=== PATIENT | male | born 2000 | race Caucasian/White ===

== ENCOUNTER 2021-07-17 23:52 | Inpatient (IN) | payer MEDICAID, SELFPAY ==
--- NOTE | ~2021-07-17 | CT_ITS ---
EXAMINATION: CT ABDOMEN AND PELVIS WITH CONTRAST CLINICAL INFORMATION: Abdominal pain COMPARISON: None TECHNIQUE: Multidetector volumetric images were obtained from the superior aspect of the liver through the pubic symphysis following administration 85 mL of Omnipaque 350 intravenous contrast. Sagittal and coronal reformatted images were obtained on the technologist's workstation. Oral contrast: No This CT examination was performed using dose optimization techniques as appropriate, variously including the following: *Automated exposure control *Adjustment of mA and/or kV according to patient size (this includes techniques or standardized protocols for targeted exams where dose is matched to indication/reason for exam; i.e. extremities or head) *Use of iterative reconstruction technique DLP: 680 mGy-cm FINDINGS: LUNG BASES: The visualized lung bases are unremarkable. LIVER, GALLBLADDER, AND BILIARY TREE: The liver is normal in size, shape, and attenuation. No focal hepatic lesion or biliary ductal dilatation is present. The gallbladder is unremarkable with no evidence of radiopaque gallstones, gallbladder wall thickening, or obvious pericholecystic inflammatory changes. PANCREAS: Unremarkable. SPLEEN: Unremarkable. ADRENAL GLANDS: Unremarkable. KIDNEYS AND URETERS: The kidneys are normal in size, shape, and attenuation. No hydronephrosis, hydroureter, or calculi seen. No perinephric stranding. BLADDER: Unremarkable. GASTROINTESTINAL TRACT: The stomach is unremarkable. Normal caliber of the small bowel. No obstruction. Inflammatory changes are present in the right lower quadrant. Prominent wall thickening with adjacent fluid at the distal ileum. Abnormal appendix. The appendix is dilated measuring 1.2 cm. Appendiceal wall thickening noted measuring 0.4 cm. Prominent adjacent inflammation. Small amount of free fluid in the pelvis. No definite rim-enhancing collection at this time. No free air. ABDOMINAL WALL: No significant hernia is appreciated. LYMPH NODES: Normal. VASCULAR: Unremarkable. PELVIC VISCERA: The prostate and seminal vesicles are unremarkable. OSSEOUS STRUCTURES: No acute or suspicious osseous abnormality. CT/CT abdomen pelvis w con IMPRESSION: Acute appendicitis. Prominent inflammatory changes in the right lower quadrant. Wall thickening of the distal ileum, likely reactive. Free fluid extends into the pelvis without defined fluid collection at this time. No free air. Fleischner guidelines were followed.
[2021-07-18] VITALS (17 sets, daily range): BP systolic 111–139; BP diastolic 57–83; PULSE 57–108; RESP 15–20; TEMP 36.1–37.4; O2SAT 95–100; BMI 28.7; BMI 30.1
[2021-07-18] MEDS: Ondansetron ODT 4 MG TAB.RAPDIS TRANSLINGU (01:32)
[2021-07-18 01:38] LABS: Basophils Percent Auto 0.1 % (0-2); Hematocrit 48.3 % (42.0-52.0); Hemoglobin 15.8 g/dl (14.0-18.0); Imm Gran Pct Auto 0.4 % (0.0-0.4); Lymphocytes Percent Auto 3.5 % (20-40); MANUAL DIFF FLAG SCAN; Mean Corpuscular HGB Conc 32.7 g/dl (31.0-36.0); Mean Corpuscular Volume 79.4 fL (80.0-98.0); Mean Platelet Volume 10.3 fL (9.4-12.4); Monocytes Absolute Auto 0.7 X10*3/uL (0.1-1.2); Monocytes Percent Auto 2.8 % (2-11); Neutrophils Percent Auto 93.2 % (45-73); Platelet Count 284 X10*3/uL (160-400); Red Blood Count 6.08 X10*6/uL (4.60-5.80); Red Cell Distribution Width 13.5 % (11.0-16.0); SCAN SMEAR FLAG 1; White Blood Count 26.9 X10*3/uL (4.8-10.8)
[2021-07-18 02:00] LABS: SLIDE REVIEW VERIFIED
[2021-07-18 02:05] LABS: Alanine Aminotransferase 32 U/L (0-40); Alkaline Phosphatase 78 U/L (39-117); Anion Gap 17 (12-20); Aspartate Amino Transferase 18 U/L (5-37); Bilirubin Direct 0.3 mg/dL (0.0-0.5); Bilirubin Total 0.7 mg/dL (0.0-1.0); Blood Urea Nitrogen 16 mg/dL (9-16); Calcium 10.6 mg/dL (8.4-10.2); Carbon Dioxide 19 mmol/L (22-29); Chloride 104 mmol/L (96-108); Creatinine Clr Calc Pharmacy 131.2; Estimated Glomerular Filt Rate > 60; Glucose Random 129 mg/dL (60-115); Lipase 71 U/L (8-78); Potassium 4.4 mmol/L (3.3-5.1); Sodium 136 mmol/L (135-145); Total Protein 8.6 g/dL (6.5-8.0)
[2021-07-18 04:05] LABS: Appearance Urine HAZY; Color Urine DK YELLOW; Glucose Urine UA NEG (NEG); Leukocyte Esterase Urine TRACE (NEG); Nitrite Urine NEG (NEG); PH 6.5 (5.0-8.0); Specific Gravity - Urine 1.025 (1.005-1.025); UACC Culture Trigger YES; Urine Blood NEG (NEG); Urine Ketones NEG (NEG); Urine Protein TRACE MG/DL (NEG-TRACE)
[2021-07-18] MEDS: Ketorolac Tromethamine 30 MG/ML VIAL 15 MG IVPUSH (04:09)
[2021-07-18 04:23] LABS: Amorphous Sediment Urine TRACE /LPF; Bacteria Urine 1+ /LPF; Granular Casts Urine 0-2 /LPF; Lactic Acid 2.8 mmol/L (0.5-2.0); Mucus Urine 3+ /LPF; Squamous Epithelial Cell Urine 2+ /LPF
[2021-07-18] MEDS: iohexoL 350 MG/ML 100 ML INFUS..BTL 85 ML IV (04:23)
[2021-07-18 04:24] LABS: COVID-19 Test Negative (Negative)
[2021-07-18] MEDS: 0.9 % Sodium Chloride 1,000 ML 999 ML IV (04:25)
[2021-07-18] MEDS: Piperacillin Sodium/Tazobactam 3.375 GM in 0.9 % Sodium Chloride 50 ML IV ×3 (04:26→23:31)
--- NOTE | 2021-07-18 05:07 | ED_ITS ---
HPI - Abdominal Pain General Chief Complaint: Nausea/Vomiting/Diarrhea Stated Complaint: n/v, shakes + sweats Time Seen by Provider: 07/18/21 03:53 Source: patient and family (Mother) Mode of arrival: ambulatory History of Present Illness HPI narrative: 21-year-old male without significant past medical history presents with nausea, vomiting, diarrhea and periumbilical abdominal pain/right lower quadrant pain for 12 hours as been worsening. Patient reports chills as well. Related Data Allergies Allergy/AdvReac Type Severity Reaction Status Date / Time No Known Allergies Allergy Unverified 01/18/20 16:56 Review of Systems Review of Systems Pertinent positives and negatives as stated in HPI 10 point review of systems is otherwise negative. PMFSH Past Medical History Source: nursing notes reviewed Social History Social History Advance Directives: No Advance Directives Information Provided: Yes Physical Exam ED Vital Signs: Vital Signs - 24 hr 07/18/21 01:18 07/18/21 03:38 Temperature 98.7 F 98.4 F Pulse Rate 96 101 H Respiratory Rate 20 18 Blood Pressure 111/69 139/74 Pulse Oximetry 96 99 BMI result Body Mass Index 28.7 VITAL SIGNS: Reviewed. GENERAL: Well developed, well nourished, in no acute distress. HEAD: Normocephalic/atraumatic EYES: PERRLA, EOMI EARS: Ext canals without abnormality OROPHARYNX: no oral lesions noted, posterior pharynx clear LUNGS: Normal breath sounds. No adventitious sounds or accessory muscle use. SpO2<96> CARDIOVASCULAR: Regular rate and rhythm without noted murmurs ABDOMEN: Soft, tenderness on palpation at right lower quadrant/lower anant umbilical, non-distended with bowel sounds. SKIN: Inspection of the skin reveals no rashes NEUROLOGIC: Alert and oriented x 4. Strength and sensation to light touch were grossly intact x 4. Course Course Course Narrative: 21-year-old male with history and clinical presentation most consistent with appendicitis versus renal colic. On review of all investigations findings consistent with acute appendicitis, patient received IV fluids, pain medication, antibiotics and I discussed this c ase with the surgical team who accepts admission. MDM - Abdominal Pain Lab Data Result diagrams: 07/18/21 01:31 07/18/21 01:31 Labs: Lab Results 0307/18/21 07/18/21 Range/Units 01:31 01:31 03:59 WBC 26.9 H (4.8-10.8) X10*3/uL RBC 6.08 H (4.60-5.80) X10*6/uL Hgb 15.8 (14.0-18.0) g/dl Hct 48.3 (42.0-52.0) % MCV 79.4 L (80.0-98.0) fL MCH 26.0 L (27.0-33.0) pg MCHC 32.7 (31.0-36.0) g/dl RDW 13.5 (11.0-16.0) % Plt Count 284 (160-400) X10*3/uL MPV 10.3 (9.4-12.4) fL Immature Gran % (Auto) 0.4 (0.0-0.4) % Neut % (Auto) 93.2 H (45-73) % Lymph % (Auto) 3.5 L (20-40) % [place] % (Auto) 2.8 (2-11) % Eos % (Auto) 0.0 (0-4) % Baso % (Auto) 0.1 (0-2) % Lymph # (Auto) 1.0 L (1.2-4.9) X10*3/uL [place] # (Auto) 0.7 (0.1-1.2) X10*3/uL Eos # (Auto) 0.0 (0.0-0.4) X10*3/uL Baso # (Auto) 0.0 (0.0-0.2) X10*3/uL Abs Immat Gran (auto) 0.10 H (0.00-0.03) X10*3/uL Absolute Neuts (auto) 25.0 H (2.0-8.3) x10*3/uL Absolute Nucleated RBC 0.000 (0.0-0.012) X10*3/uL Nucleated RBC % (auto) 0.0 (0.0-0.2) /100WBC Smear Tech's Comments VERIFIED Sodium 136 (135-145) mmol/L Potassium 4.4 (3.3-5.1) mmol/L Chloride 104 (96-108) mmol/L Carbon Dioxide 19 L (22-29) mmol/L Anion Gap 17 (12-20) BUN 16 (9-16) mg/dL Creatinine 1.00 (0.5-1.4) mg/dL Estim Creat Clear Calc 131.2 Estimated GFR > 60 Random Glucose 129 H (60-115) mg/dL Lactic Acid 2.8 H* (0.5-2.0) mmol/L Calcium 10.6 H (8.4-10.2) mg/dL Total Bilirubin 0.7 (0.0-1.0) mg/dL Direct Bilirubin 0.3 (0.0-0.5) mg/dL AST 18 (5-37) U/L ALT 32 (0-40) U/L Alkaline Phosphatase 78 (39-117) U/L Total Protein 8.6 H (6.5-8.0) g/dL Albumin 5.0 (3.5-5.0) g/dL Lipase 71 (8-78) U/L Urine Color Urine Appearance Urine pH (5.0-8.0) Ur Specific [place] (1.005-1.025) Urine Protein (NEG-TRACE) MG/DL Urine Glucose (UA) (NEG) MG/DL Urine Ketones (NEG) MG/DL Urine Blood (NEG) Urine Nitrite (NEG) Ur Leukocyte Esterase (NEG) Urine RBC (0) /HPF Urine WBC (0-4) /HPF Ur Squamous Epith Cells /LPF Amorphous Sediment /LPF Urine Bacteria /LPF Granular Casts /LPF Urine Mucus /LPF COVID-19 ([facility]ISTA) (Negative) COVID-19 Clin Com 07/18/21 07/18/21 Range/Units 03:59 03:59 WBC (4.8-10.8) X10*3/uL RBC (4.60-5.80) X10*6/uL Hgb (14.0-18.0) g/dl Hct (42.0-52.0) % MCV (80.0-98.0) fL MCH (27.0-33.0) pg MCHC (31.0-36.0) g/dl RDW (11.0-16.0) % Plt Count (160-400) X10*3/uL MPV (9.4-12.4) fL Immature Gran % (Auto) (0.0-0.4) % Neut % (Auto) (45-73) % Lymph % (Auto) (20-40) % [place] % (Auto) (2-11) % Eos % (Auto) (0-4) % Baso % (Auto) (0-2) % Lymph # (Auto) (1.2-4.9) X10*3/uL [place] # (Auto) (0.1-1.2) X10*3/uL Eos # (Auto) (0.0-0.4) X10*3/uL Baso # (Auto) (0.0-0.2) X10*3/uL Abs Immat Gran (auto) (0.00-0.03) X10*3/uL Absolute Neuts (auto) (2.0-8.3) x10*3/uL Absolute Nucleated RBC (0.0-0.012) X10*3/uL Nucleated RBC % (auto) (0.0-0.2) /100WBC Smear Tech's Comments Sodium (135-145) mmol/L Potassium (3.3-5.1) mmol/L Chloride (96-108) mmol/L Carbon Dioxide (22-29) mmol/L Anion Gap (12-20) BUN (9-16) mg/dL Creatinine (0.5-1.4) mg/dL Estim Creat Clear Calc Estimated GFR Random Glucose (60-115) mg/dL Lactic Acid (0.5-2.0) mmol/L Calcium (8.4-10.2) mg/dL Total Bilirubin (0.0-1.0) mg/dL Direct Bilirubin (0.0-0.5) mg/dL AST (5-37) U/L ALT (0-40) U/L Alkaline Phosphatase (39-117) U/L Total Protein (6.5-8.0) g/dL Albumin (3.5-5.0) g/dL Lipase (8-78) U/L Urine Color DK YELLOW Urine Appearance HAZY Urine pH 6.5 (5.0-8.0) Ur Specific [place] 1.025 (1.005-1.025) Urine Protein TRACE (NEG-TRACE) MG/DL Urine Glucose (UA) NEG (NEG) MG/DL Urine Ketones NEG (NEG) MG/DL Urine Blood NEG (NEG) Urine Nitrite NEG (NEG) Ur Leukocyte Esterase TRACE H (NEG) Urine RBC 5-9 H (0) /HPF Urine WBC 1-4 (0-4) /HPF Ur Squamous Epith Cells 2+ /LPF Amorphous Sediment TRACE /LPF Urine Bacteria 1+ /LPF Granular Casts 0-2 /LPF Urine Mucus 3+ /LPF COVID-19 (SHAISTA) Negative (Negative) COVID-19 Clin Com See Note Discharge Plan Discharge Clinical Impression: Acute appendicitis Patient Disposition: Admitted As Inpatient
--- NOTE | 2021-07-18 05:18 | PC.NURSE ---
Dr. Lindsey to bedside to discuss CT results with pt. pt requesting to speak privately with MD to discuss CT results as well as some other health concerns. This RN leaving room with mother to allow pt to speak privately with MD. This RN offering reassurance to mother. MD finished with discussion, mother back in room with pt to allow him to share CT results and any other concerns he may want to share with her.
[2021-07-18] MEDS: 0.9 % Sodium Chloride 1,000 ML 100 ML IVCONT ×2 (05:35→15:16)
[2021-07-18] MEDS: ondansetron HCL 4 MG/2 ML VIAL IVPUSH ×2 (05:44→12:45)
[2021-07-18] MEDS: Acetaminophen 325 MG TABLET 975 MG PO (05:45)
[2021-07-18 06:03] LABS: Reflex Lactate? Lactic Acid Added
--- NOTE | 2021-07-18 07:37 | PHA.MEDREC ---
Pharmacy Consult ? Medication Reconciliation Pharmacy has completed the medication reconciliation. Patient report he tried pepto bismol but vomit shortly after. Carmen Campbell, PharmD
[2021-07-18] MEDS: 0.9 % Sodium Chloride Flush 3 ML SYRINGE IVFLUSH ×2 (08:01→15:16)
--- NOTE | 2021-07-18 08:20 | PM.HPGS ---
History of Present Illness History of Present Illness Date of Service: 07/18/21 Chief complaint: acute appendicitis Narrative: Alexander De Jesus is a 21 year old male who came to the ER last night because lower abdominal pain. He says this started about 14:00 yesterday afternoon. He said he was fine during the morning. He describes having lower abdominal pain along with nausea and vomiting. He says that he has had vomited multiple times overnight. He denies any fever but has had some chills. Review of Systems Constitutional: Constitutional: Reports chills and Denies fever(s) Cardiovascular: Cardiovascular: Denies chest pain, Denies dyspnea and Denies dyspnea on exertion Respiratory: Respiratory: Denies cough, Denies dyspnea and Denies dyspnea on exertion Gastrointestinal: Gastrointestinal: Denies hematochezia and Denies change in bowel habits Genitourinary: Genitourinary: Denies hematuria and Denies difficulty urinating Musculoskeletal: Musculoskeletal: Denies back pain and Denies limited range of motion Neurologic: Denies focal weakness and Denies convulsions Psychiatric: Psychiatric: Denies depression and Denies mood swings [facility] Past Medical History Medical History (Updated 07/18/21 @ 08:24 by Migel Cerda MD) Medical history non-contributory Social History Social History Alcohol intake: current Alcohol intake frequency: holidays/special occasions only Patient Tobacco Use Status: Current everyday Tobacco user Use of substances other than those prescribed or required for medical reasons: No Advance Directives: No Advance Directives Information Provided: Yes Meds Allergies Allergy/AdvReac Type Severity Reaction Status Date / Time No Known Allergies Allergy Unverified 01/18/20 16:56 Active Medications: Current Medications Acetaminophen (Acetaminophen 325 Mg Tablet) 650 mg PO Q4H PRN PRN Reason: fever Sodium Chloride (Ns) 1,000 mls @ 100 mls/hr IVCONT .Q10H [facility] Last Admin: 07/18/21 05:35 Dose: 100 mls/hr Documented by: Piperacillin Sod/Tazobactam (Sod 3.375 gm/ Sodium Chloride) 50 mls @ 100 mls/hr IV Q6H [facility] Morphine Sulfate (Morphine Sulfate 4 Mg/Ml Cartridge) 3 mg IVPUSH Q3H PRN; Protocol PRN Reason: Pain, Severe (Pain Scale 7-10) Ondansetron HCl (Ondansetron Hcl 4 Mg/2 Ml Vial) 4 mg IVPUSH Q8H PRN PRN Reason: Nausea and Vomiting Last Admin: 07/18/21 05:44 Dose: 4 mg Documented by: Sodium Chloride (0.9 % Sodium Chloride Flush 3 Ml Syringe) 3 ml IVFLUSH QSHIFT [facility] Last Admin: 07/18/21 08:01 Dose: 3 ml Documented by: Home Medications Medication Instructions Recorded Confirmed Last Taken Type No Known Home Meds 07/18/21 07/18/21 Unknown History Physical Exam Vital Signs: Vital Signs: Last Vital Signs Temp 99 F 07/18/21 07:48 Pulse 108 H 07/18/21 07:48 Resp 19 07/18/21 07:48 BP 118/69 07/18/21 07:48 Pulse Ox 98 07/18/21 07:48 BMI result Body Mass Index 28.7 Const: General: comfortable and no acute distress Orientation/consciousness: patient oriented x3 Neck: Neck: Yes no lymphadenopathy Resp: Auscultation: clear to auscultation bilaterally Cardio: Rhythm: regular rhythm GI: Palpation (GI): Soft to palpation, Tenderness to palpation present (GI) (Lower abdomen tenderness, no guarding or rebound) and no guarding Neuro: General: patient oriented x3 Results Results Labs: Short CBC 07/18/21 Range/Units 01:31 WBC 26.9 H (4.8-10.8) X10*3/uL Hgb 15.8 (14.0-18.0) g/dl Hct 48.3 (42.0-52.0) % Plt Count 284 (160-400) X10*3/uL BMP 07/18/21 01:31 Sodium 136 Potassium 4.4 Chloride 104 Carbon Dioxide 19 L BUN 16 Creatinine 1.00 Calcium 10.6 H Liver Function 07/18/21 Range/Units 01:31 Total Bilirubin 0.7 (0.0-1.0) mg/dL Direct Bilirubin 0.3 (0.0-0.5) mg/dL AST 18 (5-37) U/L ALT 32 (0-40) U/L Alkaline Phosphatase 78 (39-117) U/L Albumin 5.0 (3.5-5.0) g/dL Urine 07/18/21 Range/Units 03:59 Urine Color DK YELLOW Urine Appearance HAZY Urine pH 6.5 (5.0-8.0) Ur Specific [place] 1.025 (1.005-1.025) Urine Protein TRACE (NEG-TRACE) MG/DL Urine Glucose (UA) NEG (NEG) MG/DL Assessment and Plan (1) Acute appendicitis: Status: Acute He came to the ER because of lower abdominal pain. Review of his CT scan shows sickened periappendiceal inflammatory changes and some mild free fluid. Findings are consistent with acute appendicitis. I reviewed the CT scan with the radiologist. I had a long discussion with the patient and his mother. I explained the technique of laparoscopic appendectomy as well as the possibility of converting to open. I reviewed the risks including but not limited to bleeding, infections, injury to bowel, injury to urinary tract, staple line leak, inherent risks of anesthesia, as well as the benefits and alternatives. He is aware of the option of IV antibiotic treatment. He understands and wants to proceed with appendectomy. This will be scheduled for this morning. Quality Stroke Does the patient have a stroke diagnosis?: No VTE Prior VTE?: No VTE Risk Level:: Medical - low VTE Device Contraindication: N/A - Device Ordered VTE Drug Contraindication: Treatment Not Indicated Procedures Date of Service Date of Service: 07/18/21
--- NOTE | 2021-07-18 08:45 | PC.NURSE ---
rn to rn given to saqib pt aware of plan of care for surgery. pt/mother seen earlier by dr. beach and is aware of plan of care.
[2021-07-18] MEDS: Lactated Ringers 1,000 ML 100 ML IVCONT (09:37)
--- NOTE | 2021-07-18 11:09 | HO.ANESPROP2 ---
HPI - Anesthesia Eval Consult details Narrative: appendectomy PMFSH Active Problems Active Problems: All Active Problems (Updated 07/18/21 @ 08:24 by Migel Cerda MD) Medical history non-contributory (Acute) Acute appendicitis (Acute) Past Medical History Medical History (Updated 07/18/21 @ 08:24 by Migel Cerda MD) Medical history non-contributory Family History Family history of problems with anesthesia: No Surgical History History of Problems with Anesthesia: No Social History Social History Alcohol intake: current Alcohol intake frequency: holidays/special occasions only Patient Tobacco Use Status: Never used Tobacco Meds Allergies Allergy/AdvReac Type Severity Reaction Status Date / Time No Known Allergies Allergy Unverified 01/18/20 16:56 Active Medications: Current Medications Acetaminophen (Acetaminophen 325 Mg Tablet) 650 mg PO Q4H PRN PRN Reason: fever Sodium Chloride (Ns) 1,000 mls @ 100 mls/hr IVCONT .Q10H [facility] Last Admin: 07/18/21 05:35 Dose: 100 mls/hr Documented by: Piperacillin Sod/Tazobactam (Sod 3.375 gm/ Sodium Chloride) 50 mls @ 100 mls/hr IV Q6H [facility] Morphine Sulfate (Morphine Sulfate 4 Mg/Ml Cartridge) 3 mg IVPUSH Q3H PRN; Protocol PRN Reason: Pain, Severe (Pain Scale 7-10) Ondansetron HCl (Ondansetron Hcl 4 Mg/2 Ml Vial) 4 mg IVPUSH Q8H PRN PRN Reason: Nausea and Vomiting Last Admin: 07/18/21 05:44 Dose: 4 mg Documented by: Sodium Chloride (0.9 % Sodium Chloride Flush 3 Ml Syringe) 3 ml IVFLUSH QSHIFT [facility] Last Admin: 07/18/21 08:01 Dose: 3 ml Documented by: Home Medications Medication Instructions Recorded Confirmed Last Taken Type No Known Home Meds 07/18/21 07/18/21 Unknown History Exam Exam Date and Time: July 18, 2021 1109 Height,Weight and Vital Signs: Height 5 ft 10 in Weight 95.254 kg Last Vital Signs Temp 99 F 07/18/21 07:48 Pulse 108 H 07/18/21 07:48 Resp 19 07/18/21 07:48 BP 118/69 07/18/21 07:48 Pulse Ox 98 07/18/21 07:48 Pertinent Lab Results Pertinent Lab Results: Laboratory Tests 07/18/21 07/18/21 07/18/21 01:31 01:31 03:59 WBC 26.9 H RBC 6.08 H Hgb 15.8 Hct 48.3 MCV 79.4 L MCH 26.0 L MCHC 32.7 RDW 13.5 Plt Count 284 MPV 10.3 Immature Gran % (Auto) 0.4 Neut % (Auto) 93.2 H Lymph % (Auto) 3.5 L [place] % (Auto) 2.8 Eos % (Auto) 0.0 Baso % (Auto) 0.1 Lymph # (Auto) 1.0 L [place] # (Auto) 0.7 Eos # (Auto) 0.0 Baso # (Auto) 0.0 Abs Immat Gran (auto) 0.10 H Absolute Neuts (auto) 25.0 H Absolute Nucleated RBC 0.000 Nucleated RBC % (auto) 0.0 Smear Tech's Comments VERIFIED Sodium 136 Potassium 4.4 Chloride 104 Carbon Dioxide 19 L Anion Gap 17 BUN 16 Creatinine 1.00 Estim Creat Clear Calc 131.2 Estimated GFR > 60 Random Glucose 129 H Lactic Acid 2.8 H* Lactic Acid F/U @ 2Hr Calcium 10.6 H Total Bilirubin 0.7 Direct Bilirubin 0.3 AST 18 ALT 32 Alkaline Phosphatase 78 Total Protein 8.6 H Albumin 5.0 Lipase 71 Urine Color Urine Appearance Urine pH Ur Specific [place] Urine Protein Urine Glucose (UA) Urine Ketones Urine Blood Urine Nitrite Ur Leukocyte Esterase Urine RBC Urine WBC Ur Squamous Epith Cells Amorphous Sediment Urine Bacteria Granular Casts Urine Mucus COVID-19 (SHAISTA) COVID-19 Clin Com 07/18/21 07/18/21 07/18/21 03:59 03:59 06:29 WBC RBC Hgb Hct MCV MCH MCHC RDW Plt Count MPV Immature Gran % (Auto) Neut % (Auto) Lymph % (Auto) [place] % (Auto) Eos % (Auto) Baso % (Auto) Lymph # (Auto) [place] # (Auto) Eos # (Auto) Baso # (Auto) Abs Immat Gran (auto) Absolute Neuts (auto) Absolute Nucleated RBC Nucleated RBC % (auto) Smear Tech's Comments Sodium Potassium Chloride Carbon Dioxide Anion Gap BUN Creatinine Estim Creat Clear Calc Estimated GFR Random Glucose Lactic Acid Lactic Acid F/U @ 2Hr 1.0 Calcium Total Bilirubin Direct Bilirubin AST ALT Alkaline Phosphatase Total Protein Albumin Lipase Urine Color DK YELLOW Urine Appearance HAZY Urine pH 6.5 Ur Specific [place] 1.025 Urine Protein TRACE Urine Glucose (UA) NEG Urine Ketones NEG Urine Blood NEG Urine Nitrite NEG Ur Leukocyte Esterase TRACE H Urine RBC 5-9 H Urine WBC 1-4 Ur Squamous Epith Cells 2+ Amorphous Sediment TRACE Urine Bacteria 1+ Granular Casts 0-2 Urine Mucus 3+ COVID-19 (SHAITSA) Negative COVID-19 Clin Com See Note Airway Mallampati Class: I TM Dist: >3cm Neck ROM: Full Loose/Missing/Broken Teeth: No Heart: ok Lungs: ok Assessment and Plan Final Anesthetic Review Family History of Problems with Anesthesia: No History of Problems with Anesthesia: No NPO: Yes ASA Class: I Final Preanesthetic Review: No Changes in Pt Med Stat, Meds/Allgs Chart Reviewed, Consent Obtained/Reviewed and Anes Risks/Benef Reviewed Patient Risk: Low Procedure Risk: Low Anesthetic Plan Anesthetic Plan: GA and Agree w/ Assess. and Plan Disposition: Standard PACU
--- NOTE | 2021-07-18 11:09 | MHC.CM.PN ---
CM ATTEMPTED TO SEE PT WHO IS OFF UNIT IN [facility] PER RECORDS, PT LIVES WITH HIS PARENTS AND WORKS AT THE [facility] PT SEES A PCP AT [facility] CM WILL REVISIT PT ONCE HE RETURNS TO UNIT
--- NOTE | 2021-07-18 12:35 | PM.OP ---
Brief Operative Note Date of Service: 07/18/21 <Carmen Hughes PA-C - Last Filed: 07/18/21 12:37> Pre-op diagnosis: acute appendicitis <Carmen Hughes PA-C - Last Filed: 07/18/21 12:37> Post-op diagnosis: same (suppurative) <Carmen Hughes PA-C - Last Filed: 07/18/21 12:37> Procedure: LAPAROSCOPIC APPENDECTOMY <Carmen Hughes PA-C - Last Filed: 07/18/21 12:37> Surgeon: ALLA OLIVAS MD <Carmen Hughes PA-C - Last Filed: 07/18/21 12:37> Anesthesia: GETA <Carmen Hughes PA-C - Last Filed: 07/18/21 12:37> Was an Sales Account Associate used for this Procedure?: Yes <Carmen Hughes PA-C - Last Filed: 07/18/21 12:37> No <Alla Olivas MD - Last Filed: 07/18/21 12:47> Sales Account Associate: Carmen Hughes <Carmen Hughes PA-C - Last Filed: 07/18/21 12:37> Estimated blood loss (mL): 20 <MAJO Palm Last Filed: 07/18/21 12:37> Urine output (mL): 75 <Carmen Hughes PA-C - Last Filed: 07/18/21 12:37> Pathology: other (APPENDIX) <MAJO Palm Last Filed: 07/18/21 12:37> Condition: stable <MAJO Palm Last Filed: 07/18/21 12:37> Disposition: PACU <MAJO Palm Last Filed: 07/18/21 12:37>
--- NOTE | 2021-07-18 12:39 | P.OP_ITS ---
Operative Note Operative Note Date of Service: 07/18/21 Narrative: Preop diagnosis: Acute appendicitis Postop diagnosis: Acute appendicitis, with significant induration and suppuration surrounding the appendix which was markedly dilated and inflamed Procedure: Laparoscopic appendectomy Surgeon: Migel Cerda MD front end assistant: KARISHMA Hughes The patient is a 21-year-old male with lower abdominal pain since yesterday. He was brought to the emergency room late last night. He had a CAT scan early this morning showing rings consistent with acute appendicitis. This had been reviewed with the radiologist He understood the technique of laparoscopic appendectomy. He was aware of the risks, benefits, and alternatives had given consent He was brought to the operating room. He was placed supine under general anesthesia via endotracheal tube. A Renteria catheter was inserted. The abdomen is prepped and draped in the usual sterile fashion. A surgical time-out was done. The patient received Cefotan 2 g IV preoperatively. I made a short infraumbilical incision using blade 15. This was carried down through the full-thickness of the skin subcutaneous fat to the fascia. The fascia was incised. The peritoneum was entered. Through this incision a Rivas port was introduced. Pneumoperitoneum was introduced to a pressure of 15 mmHg. From here on the rest of procedure was done under vision with the laparoscope. With laparoscopic visualization using a 10 mm angled scope, proceeded to then he insert a 5/12 mm port in the left lower quadrant. A 5 mm port was introduced a small incision the suprapubic margin. The patient was placed in a head-down and [id number] position. Graspers were applied for this working ports. Examination of right lower quadrant revealed significant adherent omentum to the right pelvic sidewall. I was able to carefully release this using the graspers. By doing so was able to visualize the appendix. The appendix was markedly indurated, very thickened with a lot of suppuration surrounding this. I applied a grasper gently to the appendix at the tip. This allowed me to visualize the entire length appendix with retraction. I carefully dissected the base of the appendix using Maryland dissector to define this. I was able to in identify its confluence with the cecum. The terminal ileum was also seen. I continued to gently dissect the base of the appendix until I was able to thin this out. Examination of the base showed that there was inflammation but this appeared to be viable and nonischemic and non necrotic. There was note of a very dilated, indurated and thickened appendix distal to the base. I positioned an Endo-ROSALBA 45 mm purple stapler across the base of the appendix. This was fired and the appendix was transected at the base. I retrieved the appendix through an endobag through the umbilical incision. I reinserted all ports and insufflated. There was note of some oozing at the retroperitoneum when I had where I had to divide the line of Toldt to allow better exposure of the cecum. I examined all 4 quadrants of the peritoneal cavity. There was no evidence of any other pathology nor any bowel injury. Again, there was note of a lot of suppuration and inflammatory changes surrounding the right lower quadrant which included omentum. However there was no evidence of any bowel ischemia or injury I I did to position NADIRA 7. Drain at the right lower quadrant. This was brought out through an attic Sitz site at the suprapubic incision. I secured the NADIRA drain to the skin with a nylon 3-0 stitch I observed the area of the dissection. There is remained hemostatic. The staple line appeared intact . I then desufflated the port sites. I removed all the other ports. I closed the fascia of the umbilical incision with a [id number] Dexon 0 stitch Skin closure was achieved on all incisions using Dexon 4-0 subcuticular running sutures. Dressings were applied. All incisions were infiltrated with Marcaine 0.5% for postop analgesia. The procedure was then completed The patient tolerated procedure well with no complication noted. Initial and final counts of sponges and instruments were correct . Estimated blood loss was about 25 cc. The patient was extubated without difficulty and transferred to the recovery room with stable vital signs.
--- NOTE | 2021-07-18 12:43 | PM.DS ---
DS: Providers Provider Date of Service: 07/19/21 Date of admission: 07/18/21 05:12 Primary care physician: [facility] Attending physician on admission: Migel Cerda DS: Diagnosis Discharge Diagnosis (1) Acute appendicitis: Status: Acute DS: Summary Hospital Course Hospital Course: BRIEF HPI: Alexander De Jesus is a 21 year old male who came to the ER last night because lower abdominal pain. He says this started about 14:00 yesterday afternoon. He said he was fine during the morning. He describes having lower abdominal pain along with nausea and vomiting. He says that he has had vomited multiple times overnight. He denies any fever but has had some chills. CT scan shows a thickened appendix with periappendiceal inflammatory changes and some mild free fluid consistent with acute appendicitis. He had a leukocytosis of 26.9. HOSPITAL COURSE: The patient was admitted to the surgical service for further treatment of the acute appendicitis. He was kept NPO, on IVF and started on IV zosyn. It was recommended to proceed with laparoscopic appendectomy poss open. Treatment options were discussed. He wanted to proceed with appendectomy. He was added onto the OR schedule for that day. On 07/18/21, a laparoscopic appendectomy was performed by Dr. Cerda without complication. The patient tolerated the procedure well, completed routine recovery in PACU and was admitted to the medical/surgical floor for observation. He had an uncomplicated recovery course. On POD #1, he felt well. His pain was well controlled. He was tolerating a solid diet without N/V. He was OOB without difficulty. His vitals were stable and abdomen was benign with clean/intact dressings. His NADIRA drain output was scanty and serosanguineous. His WBC initially trended up and his leukocytosis persisted so he remained inpatient for IV abx therapy. He remained febrile during this time. His WBC downtrended significantly on POD #3 and almost normalized. He continued to feel well. His NADIRA drain had scanty nonpurulent output and was removed. He felt ready for discharge. He was discharged to home on 07/21/21 in stable condition on a PO course of Augmentin. He is to follow up with Dr. Cerda in office in 2 weeks. Status at Discharge Functional status at discharge: independent ambulation Overall status at discharge: patient is progressing back to baseline Time Spent with Patient Time attestation: Total time spent providing and/or coordinating discharge services: Discharge coordination time: Greater than 30 minutes Quality: Stroke Does the patient have a stroke diagnosis?: No Physical Exam Vital Signs: Vital Signs: Last Vital Signs Temp 99 F 07/18/21 07:48 Pulse 108 H 07/18/21 07:48 Resp 19 07/18/21 07:48 BP 118/69 07/18/21 07:48 Pulse Ox 98 07/18/21 07:48 BMI result Body Mass Index 30.1 Const: General: comfortable, no acute distress and alert Orientation/consciousness: patient oriented x3 Resp: Effort & Inspection: normal respiratory effort GI: Other: NADIRA drain scanty nonpurulent output Inspection: No distended and Yes incision (clean) Palpation (GI): Soft to palpation, Tenderness to palpation present (GI) (mild, incisional), no guarding and not rigid Skin: General skin exam: no rashes or lesions noted Neuro: General: patient oriented x3 Extrem: General: Yes no clubbing, cyanosis or edema DS: Data Data Completed and Pending Pending studies at discharge: Pending at discharge 07/18/21 12:06 Surgical [PTH] Routine Labs on day of discharge: Laboratory Results - last 24 hr 07/18/21 07/18/21 07/18/21 01:31 01:31 03:59 WBC 26.9 H RBC 6.08 H Hgb 15.8 Hct 48.3 MCV 79.4 L MCH 26.0 L MCHC 32.7 RDW 13.5 Plt Count 284 MPV 10.3 Immature Gran % (Auto) 0.4 Neut % (Auto) 93.2 H Lymph % (Auto) 3.5 L Grainger % (Auto) 2.8 Eos % (Auto) 0.0 Baso % (Auto) 0.1 Lymph # (Auto) 1.0 L Grainger # (Auto) 0.7 Eos # (Auto) 0.0 Baso # (Auto) 0.0 Abs Immat Gran (auto) 0.10 H Absolute Neuts (auto) 25.0 H Absolute Nucleated RBC 0.000 Nucleated RBC % (auto) 0.0 Smear Tech's Comments VERIFIED Sodium 136 Potassium 4.4 Chloride 104 Carbon Dioxide 19 L Anion Gap 17 BUN 16 Creatinine 1.00 Estim Creat Clear Calc 131.2 Estimated GFR > 60 Random Glucose 129 H Lactic Acid 2.8 H* Lactic Acid F/U @ 2Hr Calcium 10.6 H Total Bilirubin 0.7 Direct Bilirubin 0.3 AST 18 ALT 32 Alkaline Phosphatase 78 Total Protein 8.6 H Albumin 5.0 Lipase 71 Urine Color Urine Appearance Urine pH Ur Specific Gilbert Urine Protein Urine Glucose (UA) Urine Ketones Urine Blood Urine Nitrite Ur Leukocyte Esterase Urine RBC Urine WBC Ur Squamous Epith Cells Amorphous Sediment Urine Bacteria Granular Casts Urine Mucus COVID-19 ([facility]ISTA) COVID-19 Clin Com 07/18/21 07/18/21 07/18/21 03:59 03:59 06:29 WBC RBC Hgb Hct MCV MCH MCHC RDW Plt Count MPV Immature Gran % (Auto) Neut % (Auto) Lymph % (Auto) Grainger % (Auto) Eos % (Auto) Baso % (Auto) Lymph # (Auto) Grainger # (Auto) Eos # (Auto) Baso # (Auto) Abs Immat Gran (auto) Absolute Neuts (auto) Absolute Nucleated RBC Nucleated RBC % (auto) Smear Tech's Comments Sodium Potassium Chloride Carbon Dioxide Anion Gap BUN Creatinine Estim Creat Clear Calc Estimated GFR Random Glucose Lactic Acid Lactic Acid F/U @ 2Hr 1.0 Calcium Total Bilirubin Direct Bilirubin AST ALT Alkaline Phosphatase Total Protein Albumin Lipase Urine Color DK YELLOW Urine Appearance HAZY Urine pH 6.5 Ur Specific Gilbert 1.025 Urine Protein TRACE Urine Glucose (UA) NEG Urine Ketones NEG Urine Blood NEG Urine Nitrite NEG Ur Leukocyte Esterase TRACE H Urine RBC 5-9 H Urine WBC 1-4 Ur Squamous Epith Cells 2+ Amorphous Sediment TRACE Urine Bacteria 1+ Granular Casts 0-2 Urine Mucus 3+ COVID-19 ([facility]) Negative COVID-19 Clin Com See Note Discharge Plan Discharge Patient Disposition: Home, Self-Care Discharge Diagnosis: s/p laparoscopic appendectomy Referrals: [facility] [Primary Care Provider] - 1 Week Migel Cerda MD [Physician] - 2 Weeks Discharge Medications: New oxycodone 5 mg tablet 5 mg PO Q4H PRN (Reason: pain (scale score 7-10)) Qty: 24 0RF ibuprofen 800 mg tablet 800 mg PO Q8H PRN (Reason: abdominal pain) Qty: 30 0RF amoxicillin-pot clavulanate 875-125 mg tablet 1 tab PO BID Qty: 10 0RF Discharge Orders: Discharge Order (Routine); Ordered 07/21/21 Ordered By: Migel Cerda Diet: regular diet Activity on Discharge: No heavy lifting Stand Alone Forms: Patient Portal Discharge page Activity Restrictions/Additional Instructions: If the incision area is tender, you may apply an ice pack for short intervals (No more than 20 minutes on, followed by at least 20 minutes off). Do not apply heat. Do not use creams, lotions, or topical antibiotics unless instructed to do so by your surgeon. These can cause infection or allergic reaction. Ok to shower 24 hours after your surgery. Remove bandaids in 2 days and replace. You have steri strips (small white cloth strips) covering your incision- these will fall off ~1 week. Follow up in office with Dr. Cerda in 2 weeks. ([phone]) No heavy lifting (>10-20lbs)! Call Your Doctor If: -Your temperature exceeds 101.5? F -You experience excessive pain or swelling -You have an unexpected reaction to medication -You have excessive bleeding -You experience continued vomiting/nausea -Your incision begins to separate -Your incision shows signs of infection such as increased redness, swelling, excessive pain, drainage (light blood or clear fluid is normal) or heat Care Plan Goals: Return to baseline health and gradual return to activity following recovery period. Health Concerns: acute appendicitis Plan of Treatment: s/p laparoscopic appendectomy Assessment: Doing well post op.
[2021-07-18] MEDS: HYDROmorphone HCl 0.5 MG/0.5 ML SYRINGE IVPUSH (13:04)
[2021-07-18] MEDS: Morphine Sulfate 4 MG/ML CARTRIDGE 3 MG IVPUSH (15:16)
--- NOTE | 2021-07-18 15:53 | PM.EVENT ---
Event Note Date of Service: 07/18/21 Event Note: Seen postop Says he has good pain control although does have incisional pain Stable vital sign Abdomen soft NADIRA drain with serosanguineous output Dressings dry Diet as tolerated Pain management Plan is to continue with IV antibiotics for 2-3 more days Possibly DC NADIRA before discharge or office next week Mother Linda murry
[2021-07-19] MEDS: 0.9 % Sodium Chloride 1,000 ML 100 ML IVCONT (00:50)
[2021-07-19] MEDS: oxyCODONE HCl Immed Release 5 MG TABLET PO (00:54)
[2021-07-19] MEDS: Morphine Sulfate 4 MG/ML CARTRIDGE 3 MG IVPUSH (03:18)
[2021-07-19] MEDS: Piperacillin Sodium/Tazobactam 3.375 GM in 0.9 % Sodium Chloride 50 ML IV ×4 (04:45→23:16)
[2021-07-19 05:55] LABS: Baso%MD 0.2 %; Hematocrit 38.8 % (42.0-52.0); Hemoglobin 12.2 g/dl (14.0-18.0); IG%MD 0.6 %; Lymph%MD 6.1 %; Mean Corpuscular HGB Conc 31.4 g/dl (31.0-36.0); Mean Corpuscular Hemoglobin 25.5 pg (27.0-33.0); Mean Corpuscular Volume 81.2 fL (80.0-98.0); Mean Platelet Volume 10.4 fL (9.4-12.4); Mono%MD 4.1 %; Platelet Count 242 X10*3/uL (160-400); Red Blood Count 4.78 X10*6/uL (4.60-5.80); White Blood Count 19.9 X10*3/uL (4.8-10.8)
[2021-07-19 07:18] LABS: Band Neutrophils Percent 0 % (3-5); Lymphocytes Percent Manual 5 % (20-40); Monocytes Absolute Manual 1.4 X10*3/uL (0.1-1.2); Monocytes Percent Manual 7 % (2-11); Neutrophils Absolute Manual 17.5 X10*3/uL (2.0-8.3); Neutrophils Percent Manual 88 % (45-73)
[2021-07-19 07:19] LABS: Platelet Estimate NORMAL (NORMAL); Platelet Morphology Comment NORMAL; RBC Morphology NORMAL
[2021-07-19 08:00] VITALS: BP 127/60; PULSE 78; RESP 18; TEMP 36.6; O2SAT 99
--- NOTE | 2021-07-19 08:32 | HO.POSTANES ---
Post Anesthesia Evaluation Post Anesthesia Evaluation Vital Signs: Vital Signs Temp Pulse Resp BP Pulse Ox 07/19/21 08:00 97.9 F 78 18 127/60 99 07/18/21 23:30 99.4 F 87 17 133/75 98 Anesthesia: General Endotracheal-GETA Mental Status: Awake Pain Control: Satisfactory Nausea/Vomiting: None Hydration: Adequate Anesthesia-Related Issues: No Anes. Related Issues
--- NOTE | 2021-07-19 09:20 | MHC.CM.PN ---
PT REPORTS HE LIVES WITH HIS BROTHER AND IS INDEPENDENT WITH CARE PT DENIES USE OF DME OR HOME SERVICES PT DECLINES TO COMPLETE A HCP PT REPORTS HIS PCP IS AT [facility], HE DOES NOT KNOW THE NAME PT REPORTS HE DID RECEIVE THE COVID-19 VACCINE BUT DOES NOT KNOW THE BRAND, HE THINKS IT WAS ONLY ONE SHOT THOUGH. CURRENT DC PLAN IS HOME WITH NO SERVICES FAMILY TO TRANSPORT
--- NOTE | 2021-07-19 11:32 | P.PNGS_ITS ---
Subjective Subjective Date of Service: 07/19/21 Interval history: pt feeling very well, not much pain, moving around ok, eating and drinking ok with no n/v eugenio drain with serosanguinous drainage Physical Exam Vital Signs: Vital Signs: Last Vital Signs Temp 97.9 F 07/19/21 08:00 Pulse 78 07/19/21 08:00 Resp 18 07/19/21 08:00 BP 127/60 07/19/21 08:00 Pulse Ox 99 07/19/21 08:00 BMI result Body Mass Index 30.1 Const: General: cooperative, healthy appearing and comfortable Resp: Effort & Inspection: normal respiratory effort Auscultation: clear to auscultation bilaterally Cardio: Rate: regular rate Rhythm: regular rhythm GI: Other: abdomen is soft little distended, little tender dressings intact, eugenio serosang fluid Objective Data Active Medications Acetaminophen (Acetaminophen 325 Mg Tablet) 650 mg PO Q4H PRN PRN Reason: fever Sodium Chloride (Ns) 1,000 mls @ 100 mls/hr IVCONT .Q10H [facility] Last Admin: 07/19/21 00:50 Dose: 100 mls/hr Documented by: TACO Piperacillin Sod/Tazobactam (Sod 3.375 gm/ Sodium Chloride) 50 mls @ 100 mls/hr IV Q6H [facility] Last Infusion: 07/19/21 05:26 Dose: 0 mls/hr Documented by: TACO Morphine Sulfate (Morphine Sulfate 4 Mg/Ml Cartridge) 3 mg IVPUSH Q3H PRN; Protocol PRN Reason: Pain, Severe (Pain Scale 7-10) Last Admin: 07/19/21 03:18 Dose: 3 mg Documented by: TACO Ondansetron HCl (Ondansetron Hcl 4 Mg/2 Ml Vial) 4 mg IVPUSH Q8H PRN PRN Reason: Nausea and Vomiting Last Admin: 07/18/21 05:44 Dose: 4 mg Documented by: MARIELLA Oxycodone HCl (Oxycodone Hcl Immed Release 5 Mg Tablet) 5 mg PO Q4H PRN PRN Reason: Pain, Moderate (Pain Scale 4-6 Last Admin: 07/19/21 00:54 Dose: 5 mg Documented by: TACO Oxycodone HCl (Oxycodone Hcl Immed Release 5 Mg Tablet) 10 mg PO Q4H PRN PRN Reason: Pain, Severe (Pain Scale 7-10) Sodium Chloride (0.9 % Sodium Chloride Flush 3 Ml Syringe) 3 ml IVFLUSH QSHIFT [facility] Last Admin: 07/18/21 23:34 Dose: Not Given Documented by: TACO Non-Admin Reason: IV Running Labs CBC & Chem 7: 07/19/21 05:39 07/18/21 01:31 Labs: Laboratory Results - last 24 hr 07/19/21 05:39 MCV 81.2 MCH 25.5 L MCHC 31.4 RDW 14.0 Plt Count 242 MPV 10.4 Absolute Nucleated RBC 0.000 Nucleated RBC % (auto) 0.0 Neutrophils % (Manual) 88 H Band Neutrophils % 0 L Lymphocytes % (Manual) 5 L Monocytes % (Manual) 7 Abs Neuts (Manual) 17.5 H Lymphocytes # (Manual) 1.0 L Monocytes # (Manual) 1.4 H Platelet Estimate NORMAL Plt Morphology Comment NORMAL RBC Morphology NORMAL Microbiology Microbiology Results: Microbiology 07/18/21 Unknown Urine Culture - Final Urine clean catch - Clean Catch Midstream No growth. 07/18/21 03:59 Blood Culture - Preliminary Blood - Venous No growth after 24 hours. 07/18/21 03:59 Blood Culture - Preliminary Blood - Venous No growth after 24 hours. Procedures Date of Service Date of Service: 07/19/21 Progress Note: A&P Assessment and plan (1) Acute appendicitis: Status: Acute Assessment and Plan: 21 yo male pod#1 sp lap appy - doing very well, wbc stil high, labs still with elevated wbc but looks great, abdo exam good drain with serosang fluid nothing purulen slow diet advancement heplock ivf cont with iv antibx cont with eugenio drain pt feels good and if cont to look good and wbc improved consider dc home ryan rrow with po antibx +/- eugenio drain Fall Risk Details Current Medications: Current Medications Acetaminophen (Acetaminophen 325 Mg Tablet) 650 mg PO Q4H PRN PRN Reason: fever Sodium Chloride (Ns) 1,000 mls @ 100 mls/hr IVCONT .Q10H [facility] Last Admin: 07/19/21 00:50 Dose: 100 mls/hr Documented by: Piperacillin Sod/Tazobactam (Sod 3.375 gm/ Sodium Chloride) 50 mls @ 100 mls/hr IV Q6H [facility] Last Infusion: 07/19/21 05:26 Dose: Infused Documented by: Morphine Sulfate (Morphine Sulfate 4 Mg/Ml Cartridge) 3 mg IVPUSH Q3H PRN; Protocol PRN Reason: Pain, Severe (Pain Scale 7-10) Last Admin: 07/19/21 03:18 Dose: 3 mg Documented by: Ondansetron HCl (Ondansetron Hcl 4 Mg/2 Ml Vial) 4 mg IVPUSH Q8H PRN PRN Reason: Nausea and Vomiting Last Admin: 07/18/21 05:44 Dose: 4 mg Documented by: Oxycodone HCl (Oxycodone Hcl Immed Release 5 Mg Tablet) 5 mg PO Q4H PRN PRN Reason: Pain, Moderate (Pain Scale 4-6 Last Admin: 07/19/21 00:54 Dose: 5 mg Documented by: Oxycodone HCl (Oxycodone Hcl Immed Release 5 Mg Tablet) 10 mg PO Q4H PRN PRN Reason: Pain, Severe (Pain Scale 7-10) Sodium Chloride (0.9 % Sodium Chloride Flush 3 Ml Syringe) 3 ml IVFLUSH [facility] Last Admin: 07/18/21 23:34 Dose: Not Given Documented by: Time Spent With Patient Time: Total time spent is greater than 50% in coordination of care (as documented) at patient's floor/unit and/or counseling patient: Time with patient: 15 - 24 minutes Quality Stroke Does the patient have a stroke diagnosis?: No VTE Prior VTE?: No VTE Risk Level:: Medical - low VTE Device Contraindication: N/A - Device Ordered VTE Drug Contraindication: Treatment Not Indicated
--- NOTE | 2021-07-19 12:15 | HE.PHANOTE ---
Zosyn Antibiotic Stewardship <48h of therapy, continue zosyn
[2021-07-19 13:01] VITALS: O2SAT 100
[2021-07-19 15:39] VITALS: BP 128/62; PULSE 69; RESP 18; TEMP 37; O2SAT 99
[2021-07-19] MEDS: 0.9 % Sodium Chloride Flush 3 ML SYRINGE IVFLUSH ×2 (17:37→23:45)
--- NOTE | 2021-07-19 17:53 | PC.NURSE ---
Patient requested abdominal dressing be changed, authorized by . Mid abdominal(umbilicus) incision and left abd incisions with steri strips in place, no signs of infection. Koby drain site with sutures in place. Serosang drainage noted. DSD applied, secured with tape. Abdomen distended but soft, states passed flatus and had 2 loose BM/.
[2021-07-19] MEDS: oxyCODONE HCl Immed Release 5 MG TABLET 10 MG PO (23:22)
[2021-07-20] VITALS: BP 129/73; PULSE 78; RESP 17; TEMP 36.9; O2SAT 99
[2021-07-20] MEDS: Piperacillin Sodium/Tazobactam 3.375 GM in 0.9 % Sodium Chloride 50 ML IV ×4 (05:01→22:32)
[2021-07-20 06:24] LABS: Baso%MD 0.1 %; Hematocrit 40.4 % (42.0-52.0); Hemoglobin 12.6 g/dl (14.0-18.0); IG%MD 0.4 %; Mean Corpuscular HGB Conc 31.2 g/dl (31.0-36.0); Mean Corpuscular Hemoglobin 25.6 pg (27.0-33.0); Mean Corpuscular Volume 81.9 fL (80.0-98.0); Mean Platelet Volume 10.3 fL (9.4-12.4); Mono%MD 6.7 %; Neut%MD 74.8 %; Platelet Count 266 X10*3/uL (160-400); Red Blood Count 4.93 X10*6/uL (4.60-5.80); Red Cell Distribution Width 14.1 % (11.0-16.0); White Blood Count 20.1 X10*3/uL (4.8-10.8)
[2021-07-20 06:43] LABS: Lymphocytes Percent Manual 20 % (20-40); Monocytes Absolute Manual 1.2 X10*3/uL (0.1-1.2); Monocytes Percent Manual 6 % (2-11); Neutrophils Percent Manual 74 % (45-73)
[2021-07-20 06:44] LABS: Band Neutrophils Percent 0 % (3-5); Neutrophils Absolute Manual 14.9 X10*3/uL (2.0-8.3)
[2021-07-20 06:45] LABS: Platelet Estimate NORMAL (NORMAL); Platelet Morphology Comment NORMAL; RBC Morphology NORMAL
[2021-07-20 07:34] VITALS: BP 133/57; PULSE 84; RESP 18; TEMP 37.5; O2SAT 99
[2021-07-20 13:00] VITALS: O2SAT 100
--- NOTE | 2021-07-20 13:17 | P.PNGS_ITS ---
Subjective Subjective Date of Service: 07/20/21 Interval history: pt feels well no issues, pasing gas and some stool eating well afebrile Physical Exam Vital Signs: Vital Signs: Last Vital Signs Temp 99.5 F 07/20/21 07:34 Pulse 84 07/20/21 07:34 Resp 18 07/20/21 07:34 BP 133/57 L 07/20/21 07:34 Pulse Ox 100 07/20/21 13:00 BMI result Body Mass Index 30.1 GI: Other: abdomen soft nontender incsions look good - eugenio with sero sang drainage - cler and looks good Objective Data Active Medications Acetaminophen (Acetaminophen 325 Mg Tablet) 650 mg PO Q4H PRN PRN Reason: fever Piperacillin Sod/Tazobactam (Sod 3.375 gm/ Sodium Chloride) 50 mls @ 100 mls/hr IV Q6H [facility] Last Admin: 07/20/21 11:31 Dose: 100 mls/hr Documented by: FOSTER Morphine Sulfate (Morphine Sulfate 4 Mg/Ml Cartridge) 3 mg IVPUSH Q3H PRN; Protocol PRN Reason: Pain, Severe (Pain Scale 7-10) Last Admin: 07/19/21 03:18 Dose: 3 mg Documented by: TACO Ondansetron HCl (Ondansetron Hcl 4 Mg/2 Ml Vial) 4 mg IVPUSH Q8H PRN PRN Reason: Nausea and Vomiting Last Admin: 07/18/21 05:44 Dose: 4 mg Documented by: MARIELLA Oxycodone HCl (Oxycodone Hcl Immed Release 5 Mg Tablet) 5 mg PO Q4H PRN PRN Reason: Pain, Moderate (Pain Scale 4-6 Last Admin: 07/19/21 00:54 Dose: 5 mg Documented by: TACO Oxycodone HCl (Oxycodone Hcl Immed Release 5 Mg Tablet) 10 mg PO Q4H PRN PRN Reason: Pain, Severe (Pain Scale 7-10) Last Admin: 07/19/21 23:22 Dose: 10 mg Documented by: TACO Sodium Chloride (0.9 % Sodium Chloride Flush 3 Ml Syringe) [facility] Last Admin: 07/20/21 09:48 Dose: Not Given Documented by: CJ Non-Admin Reason: IV Running Labs CBC & Chem 7: 07/20/21 05:43 07/18/21 01:31 Labs: Laboratory Results - last 24 hr 07/20/21 05:43 MCV 81.9 MCH 25.6 L MCHC 31.2 RDW 14.1 Plt Count 266 MPV 10.3 Absolute Nucleated RBC 0.000 Nucleated RBC % (auto) 0.0 Neutrophils % (Manual) 74 H Band Neutrophils % 0 L Lymphocytes % (Manual) 20 Monocytes % (Manual) 6 Abs Neuts (Manual) 14.9 H Lymphocytes # (Manual) 4.0 Monocytes # (Manual) 1.2 Platelet Estimate NORMAL Plt Morphology Comment NORMAL RBC Morphology NORMAL Microbiology Microbiology Results: Microbiology 07/18/21 03:59 Blood Culture - Preliminary Blood - Venous No growth after 48 hours. 07/18/21 03:59 Blood Culture - Preliminary Blood - Venous No growth after 48 hours. Procedures Date of Service Date of Service: 07/20/21 Progress Note: A&P Assessment and plan (1) Acute appendicitis: Status: Acute Plan 21 year old male s/p lap appy pod#2 for bad acutlely inflammed appendix - looks good but wbc still high, afeb, exam good, feels well - eugenio clear drainage - plan to keep another 24 hrs for iv zosyn and then check cbc in am and consider dc home on po antibx. concern for intra-abdo abscess if antix treatment not done well. he understands and agrees with the plan Fall Risk Details Current Medications: Current Medications Acetaminophen (Acetaminophen 325 Mg Tablet) 650 mg PO Q4H PRN PRN Reason: fever Piperacillin Sod/Tazobactam (Sod 3.375 gm/ Sodium Chloride) 50 mls @ 100 mls/hr IV Q6H [facility] Last Admin: 07/20/21 11:31 Dose: 100 mls/hr Documented by: Morphine Sulfate (Morphine Sulfate 4 Mg/Ml Cartridge) 3 mg IVPUSH Q3H PRN; Protocol PRN Reason: Pain, Severe (Pain Scale 7-10) Last Admin: 07/19/21 03:18 Dose: 3 mg Documented by: Ondansetron HCl (Ondansetron Hcl 4 Mg/2 Ml Vial) 4 mg IVPUSH Q8H PRN PRN Reason: Nausea and Vomiting Last Admin: 07/18/21 05:44 Dose: 4 mg Documented by: Oxycodone HCl (Oxycodone Hcl Immed Release 5 Mg Tablet) 5 mg PO Q4H PRN PRN Reason: Pain, Moderate (Pain Scale 4-6 Last Admin: 07/19/21 00:54 Dose: 5 mg Documented by: Oxycodone HCl (Oxycodone Hcl Immed Release 5 Mg Tablet) 10 mg PO Q4H PRN PRN Reason: Pain, Severe (Pain Scale 7-10) Last Admin: 07/19/21 23:22 Dose: 10 mg Documented by: Sodium Chloride (0.9 % Sodium Chloride Flush 3 Ml Syringe) [facility] Last Admin: 07/20/21 09:48 Dose: Not Given Documented by: Time Spent With Patient Time: Total time spent is greater than 50% in coordination of care (as documented) at patient's floor/unit and/or counseling patient: Time with patient: 15 - 24 minutes Quality Stroke Does the patient have a stroke diagnosis?: No VTE Prior VTE?: No VTE Risk Level:: Medical - low VTE Device Contraindication: N/A - Device Ordered VTE Drug Contraindication: Treatment Not Indicated
--- NOTE | 2021-07-20 13:26 | HE.PHANOTE ---
Erin elevated wbc, post surgery patient... per surgery keeping patient x 1 more day for IV antibiotics and discharging on PO.
[2021-07-20 15:35] VITALS: BP 143/66; PULSE 89; RESP 18; TEMP 37.1; O2SAT 96
[2021-07-20] MEDS: 0.9 % Sodium Chloride Flush 3 ML SYRINGE IVFLUSH ×2 (17:02→23:17)
[2021-07-20 23:18] VITALS: BP 111/59; PULSE 84; RESP 17; TEMP 36.6; O2SAT 97
[2021-07-21] MEDS: Piperacillin Sodium/Tazobactam 3.375 GM in 0.9 % Sodium Chloride 50 ML IV (04:49)
[2021-07-21 05:44] LABS: Baso%MD 0.2 %; Eos%MD 0.5 %; Hemoglobin 12.4 g/dl (14.0-18.0); IG%MD 0.3 %; Lymph%MD 25.7 %; Mean Corpuscular HGB Conc 31.8 g/dl (31.0-36.0); Mean Corpuscular Hemoglobin 25.8 pg (27.0-33.0); Mean Corpuscular Volume 81.1 fL (80.0-98.0); Neut%MD 65.3 %; Platelet Count 272 X10*3/uL (160-400); Red Blood Count 4.81 X10*6/uL (4.60-5.80); Red Cell Distribution Width 13.6 % (11.0-16.0); White Blood Count 12.9 X10*3/uL (4.8-10.8)
[2021-07-21 06:03] LABS: Band Neutrophils Percent 1 % (3-5); Basophils Abs Manual 0.1 X10*3/uL (0.0-0.2); Basophils Percent Manual 1 % (0-2); Lymphocytes Absolute Manual 3.7 X10*3/uL (1.2-4.9); Lymphocytes Percent Manual 29 % (20-40); Monocytes Absolute Manual 1.3 X10*3/uL (0.1-1.2); Monocytes Percent Manual 10 % (2-11); Neutrophils Absolute Manual 7.7 X10*3/uL (2.0-8.3); Neutrophils Percent Manual 59 % (45-73); Platelet Estimate NORMAL (NORMAL); Platelet Morphology Comment NORM; RBC Morphology NORMAL
[2021-07-21 08:00] VITALS: BP 151/90; PULSE 73; RESP 18; TEMP 36.2; O2SAT 98
--- NOTE | 2021-07-21 08:22 | PM.PNGS ---
Subjective Subjective Date of Service: 07/21/21 Interval history: feels well wants to go home good GI function tolerating diet no signficant pain Physical Exam Vital Signs: Vital Signs: Last Vital Signs Temp 97.9 F 07/20/21 23:18 Pulse 84 07/20/21 23:18 Resp 17 07/20/21 23:18 BP 111/59 L 07/20/21 23:18 Pulse Ox 97 07/20/21 23:18 BMI result Body Mass Index 30.1 Const: General: comfortable and no acute distress Resp: Effort & Inspection: normal respiratory effort Cardio: Rate: regular rate GI: Other: incisions clean, NADIRA very scanty, clear output Palpation (GI): Soft to palpation and nontender Objective Data Active Medications Acetaminophen (Acetaminophen 325 Mg Tablet) 650 mg PO Q4H PRN PRN Reason: fever Piperacillin Sod/Tazobactam (Sod 3.375 gm/ Sodium Chloride) 50 mls @ 100 mls/hr IV Q6H [facility] Last Infusion: 07/21/21 05:20 Dose: 0 mls/hr Documented by: TACO Morphine Sulfate (Morphine Sulfate 4 Mg/Ml Cartridge) 3 mg IVPUSH Q3H PRN; Protocol PRN Reason: Pain, Severe (Pain Scale 7-10) Last Admin: 07/19/21 03:18 Dose: 3 mg Documented by: TACO Ondansetron HCl (Ondansetron Hcl 4 Mg/2 Ml Vial) 4 mg IVPUSH Q8H PRN PRN Reason: Nausea and Vomiting Last Admin: 07/18/21 05:44 Dose: 4 mg Documented by: MARIELLA Oxycodone HCl (Oxycodone Hcl Immed Release 5 Mg Tablet) 5 mg PO Q4H PRN PRN Reason: Pain, Moderate (Pain Scale 4-6 Last Admin: 07/19/21 00:54 Dose: 5 mg Documented by: TACO Oxycodone HCl (Oxycodone Hcl Immed Release 5 Mg Tablet) 10 mg PO Q4H PRN PRN Reason: Pain, Severe (Pain Scale 7-10) Last Admin: 07/19/21 23:22 Dose: 10 mg Documented by: TACO Sodium Chloride (0.9 % Sodium Chloride Flush 3 Ml Syringe) 3 ml IVFLUSH [facility] Last Admin: 07/20/21 23:17 Dose: 3 ml Documented by: TACO Labs CBC & Chem 7: 07/21/21 05:23 07/18/21 01:31 Labs: Laboratory Results - last 24 hr 07/21/21 05:23 MCV 81.1 MCH 25.8 L MCHC 31.8 RDW 13.6 Plt Count 272 MPV 10.0 Absolute Nucleated RBC 0.000 Nucleated RBC % (auto) 0.0 Neutrophils % (Manual) 59 Band Neutrophils % 1 L Lymphocytes % (Manual) 29 Monocytes % (Manual) 10 Basophils % (Manual) 1 Abs Neuts (Manual) 7.7 Lymphocytes # (Manual) 3.7 Monocytes # (Manual) 1.3 H Basophils # (Manual) 0.1 Platelet Estimate NORMAL Plt Morphology Comment NORM RBC Morphology NORMAL Microbiology Microbiology Results: Microbiology 07/18/21 03:59 Blood Culture - Preliminary Blood - Venous No growth after 48 hours. 07/18/21 03:59 Blood Culture - Preliminary Blood - Venous No growth after 48 hours. Procedures Date of Service Date of Service: 07/21/21 Progress Note: A&P Assessment and plan (1) Acute appendicitis: Status: Acute Assessment and Plan: s/p lap appy doing very well abd soft NADIRA scanty, clear WBC now down to 12.9 no fever good GI function ok to dc home dc NADIRA drain PO abx given dc instructions ffup in office Fall Risk Details Current Medications: Current Medications Acetaminophen (Acetaminophen 325 Mg Tablet) 650 mg PO Q4H PRN PRN Reason: fever Piperacillin Sod/Tazobactam (Sod 3.375 gm/ Sodium Chloride) 50 mls @ 100 mls/hr IV Q6H [facility] Last Infusion: 07/21/21 05:20 Dose: Infused Documented by: Morphine Sulfate (Morphine Sulfate 4 Mg/Ml Cartridge) 3 mg IVPUSH Q3H PRN; Protocol PRN Reason: Pain, Severe (Pain Scale 7-10) Last Admin: 07/19/21 03:18 Dose: 3 mg Documented by: Ondansetron HCl (Ondansetron Hcl 4 Mg/2 Ml Vial) 4 mg IVPUSH Q8H PRN PRN Reason: Nausea and Vomiting Last Admin: 07/18/21 05:44 Dose: 4 mg Documented by: Oxycodone HCl (Oxycodone Hcl Immed Release 5 Mg Tablet) 5 mg PO Q4H PRN PRN Reason: Pain, Moderate (Pain Scale 4-6 Last Admin: 07/19/21 00:54 Dose: 5 mg Documented by: Oxycodone HCl (Oxycodone Hcl Immed Release 5 Mg Tablet) 10 mg PO Q4H PRN PRN Reason: Pain, Severe (Pain Scale 7-10) Last Admin: 07/19/21 23:22 Dose: 10 mg Documented by: Sodium Chloride (0.9 % Sodium Chloride Flush 3 Ml Syringe) [facility] Last Admin: 07/20/21 23:17 Dose: 3 ml Documented by: Time Spent With Patient Time: Total time spent is greater than 50% in coordination of care (as documented) at patient's floor/unit and/or counseling patient: Time with patient: 15 - 24 minutes Quality Stroke Does the patient have a stroke diagnosis?: No VTE Prior VTE?: No VTE Risk Level:: Medical - low VTE Device Contraindication: N/A - Device Ordered VTE Drug Contraindication: Treatment Not Indicated
[2021-07-21] MEDS: 0.9 % Sodium Chloride Flush 3 ML SYRINGE IVFLUSH (08:31)
--- NOTE | 2021-07-21 08:44 | MHC.CM.PN ---
PT MEDICALLY CLEARED FOR D/C HOME SELF-CARE W/OUTPT FOLLOW-UP IN [facility] OFFICE AND FAMILY FOR TRANSPORT.
== END 2021-07-21 11:35 | disposition home or self-care (01) | DRG 234 ==
LOC: HO.ED 07-18 05:32 → HO.EDOVER 07-18 05:42 → HO.S3 07-18 14:18
PROVIDERS: Physician Assistant Surgical; Surgery; Admitting Provider Surgery; Emergency Provider Student in an Organized Health Care Education/Training Program; PCP Nurse Practitioner Family; Visit Provider Surgery
PROC: 0DTJ4ZZ Resection of Appendix, Percutaneous Endoscopic Approach (ICD-10-PCS; CPT 44970; principal; 2021-07-18 11:00)
DX: K35.80 Unspecified acute appendicitis (principal); Z20.822 Contact with and (suspected) exposure to COVID-19
CPT/HCPCS: 44970; 36415; 74177; 80048; 80076; 81001; 83605; 83690; 85007; 85025; 85027; 87040; 87086; 87635; 88304; 96361; 96365; 96375; 99024; 99218; 99285; J1100; J1170; J1885; J2270; J2405; J2543; J2550; J3010; Q9967